=== PATIENT | male | born 1970 | race Hispanic/Latino ===

== ENCOUNTER 2020-03-14 08:44 | Emergency (ER) | payer SELFPAY ==
--- NOTE | 2020-03-14 08:49 | ED.EPISTAXIS ---
HPI - Epistaxis General Chief complaint: Epistaxis Stated complaint: nose bleed Time Seen by Provider: 03/14/20 08:49 Source: patient and family Mode of arrival: ambulatory Limitations: no limitations History of Present Illness HPI Narrative: Patient is a 49-year-old male who presents for evaluation of nosebleed. Patient has intermittent nosebleed over the past 3 days. Reports these are spontaneous, denies any head trauma. He reports some sinus congestion. He reports bleeding out of mostly the right nostril. He denies any nausea, vomiting, fever, shortness of breath or chest pain. No syncope, no lightheadedness or dizziness. Patient does not have a history of high blood pressure. No history of coagulopathy. Patient states he had epistaxis once prior around 3 years ago, and this had to be cauterized by an ear nose throat doctor before resolving. Patient without any current active bleeding in the room. Related Data Home Medications Medication Instructions Recorded Confirmed No Home Medications 03/14/20 03/14/20 Allergies Allergy/AdvReac Type Severity Reaction Status Date / Time No Known Allergies Allergy Verified 03/14/20 08:57 Review of Systems Review of Systems: Narrative: CONSTITUTIONAL: Denies fever HEENT: Reports epistaxis and sinus congestion CARDIOVASCULAR: Denies chest pain RESPIRATORY: Denies cough or dyspnea. GASTROINTESTINAL: Denies abdominal pain SKIN: Denies rash MUSCULOSKELETAL: Denies back pain NEUROLOGIC: Denies headache denies weakness PMFSH Past Medical History Medical History (Updated 03/14/20 @ 09:52 by Mirna Blancas MD) Epistaxis No pertinent past medical history Surgical History Surgical History (Updated 03/14/20 @ 09:52 by Mirna Blancas MD) No pertinent past surgical history Social History Social History (Updated 03/14/20 @ 09:52 by Mirna Blancas MD) Smoking status: Never smoker Alcohol intake: never Substance use: never Living arrangements: with family Gender identity (if verbalized by the patient): Male Exam Narrative: Exam Narrative: GENERAL: Awake, alert, conversant HEAD: Normocephalic, atraumatic. EYES: PERRLA and EOMI. ENT: Nares clear, no rhinorrhea, no active epistaxis. Dried blood present in the right naris. No mass identified. Mucous membranes moist. Oropharynx is clear. No blood clot present. NECK: Supple. CHEST: No respiratory distress, breathing even and non labored HEART: Regular rate, sinus rhythm ABDOMEN:Non distended, non tender EXTREMITIES: Normal range of motion. No edema. SKIN: Warm, dry, no rash. NEURO:No focal deficits. Alert and oriented x3 Course Vital Signs Vital signs: Vital Signs Temperature 36.9 C 03/14/20 08:52 Pulse Rate 93 03/14/20 08:52 Respiratory Rate 17 03/14/20 08:52 Blood Pressure 144/94 H 03/14/20 08:52 Pulse Oximetry 97 03/14/20 08:52 Temperature 36.9 C 03/14/20 08:52 Pulse Rate 93 03/14/20 08:52 Respiratory Rate 17 03/14/20 08:52 Blood Pressure 144/94 H 03/14/20 08:52 Pulse Oximetry 97 03/14/20 08:52 MDM - Epistaxis MDM Narrative Medical decision making narrative: Patient presented for evaluation of intermittent epistaxis. At the time of assessment, no active bleeding. Patient is well-appearing without hypertension or coagulopathy. He is ambulatory, no syncopal events. No trauma to the face. No active bleeding, at this time. At this point, I feel like we can just do Afrin and a nasal clamp as well symptomatic care. Patient does not have any severe active bleeding to warrant Rhino Rocket intervention or cauterization. Patient would benefit from ENT follow-up at this point. No labs needed as patient was stable vital signs no other red flag symptoms. Differential Diagnosis Differential diagnosis: Likely anterior epistaxis and posterior epistaxis Discharge Plan Discharge Clinical Impression: Epistaxis Patient Disposition: Home, Self-Care Con
[2020-03-14 08:52] VITALS: BP 144/94; PULSE 93; RESP 17; TEMP 36.9; O2SAT 97
[2020-03-14 10:00] VITALS: BP 137/93; PULSE 97; RESP 15; O2SAT 99
== END 2020-03-14 10:01 | disposition home or self-care (01) ==
PROVIDERS: Emergency Provider Emergency Medicine
DX: R04.0 Epistaxis (principal)
CPT/HCPCS: 99283; A9270